=== PATIENT | male | born 1990 | race Caucasian/White ===

== ENCOUNTER 2023-06-07 08:49 | Emergency (ER) | payer BC, SELFPAY ==
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
[2023-06-07 08:52] VITALS: BP 132/76; PULSE 92; RESP 14; TEMP 36.6; O2SAT 100
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
--- NOTE | 2023-06-07 09:56 | NUR.NOTE ---
patient 18 units, Novalog, patient had his insulin pin with him. Patient reports he did not take his insulin this morning and ate fruit this morning. Nursing Note:
[2023-06-07] MEDS: oxyCODONE 5 mg/Acetaminophen 325 mg TAB 1 TAB PO (09:58)
[2023-06-07] MEDS: Ondansetron O.D.T. 4 MG TABEF PO (09:58)
[2023-06-07] MEDS: Cyclobenzaprine 10 MG TAB PO (09:59)
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
[2023-06-07] MEDS: oxyCODONE 5 mg/Acetaminophen 325 mg TAB 2 TAB PO (10:47)
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
== END 2023-06-07 10:55 | disposition home or self-care (01) ==
PROVIDERS: Emergency Provider Registered Nurse Emergency; PCP Hospitalist
DX: S42.114A Nondisplaced fracture of body of scapula, right shoulder, initial encounter for closed fracture (principal); E10.9 Type 1 diabetes mellitus without complications; V28.49XA Other motorcycle driver injured in noncollision transport accident in traffic accident, initial encounter; Y92.482 Bike path as the place of occurrence of the external cause; Y93.55 Activity, bike riding; Y99.9 Unspecified external cause status
CPT/HCPCS: 76604; 76705; 76857; 76882; 82962; 99284; 71046; 71100; 73030; 99283